=== PATIENT | female | born 1980 | race Two or more races ===

== ENCOUNTER 2020-07-15 08:04 | Outpatient (CLI) | payer OTHER | END 2020-07-15 08:17 | disposition home or self-care (01) | LOC: LAB 08:04 | PROVIDERS: ATTEND Obstetrics & Gynecology | DX: D64.89 Other specified anemias (principal); E78.49 Other hyperlipidemia; E07.89 Other specified disorders of thyroid; N39.0 Urinary tract infection, site not specified; M25.50 Pain in unspecified joint; E55.9 Vitamin D deficiency, unspecified; D51.8 Other vitamin B12 deficiency anemias; D50.8 Other iron deficiency anemias; Z12.11 Encounter for screening for malignant neoplasm of colon ==

== ENCOUNTER 2020-07-20 10:38 | Outpatient (CLI) | payer OTHER | END 2020-07-20 10:44 | disposition home or self-care (01) | LOC: LAB 10:38 | PROVIDERS: ATTEND Obstetrics & Gynecology | DX: D64.89 Other specified anemias (principal); E78.49 Other hyperlipidemia; N39.0 Urinary tract infection, site not specified; M25.50 Pain in unspecified joint; R73.09 Other abnormal glucose; E55.9 Vitamin D deficiency, unspecified; D51.8 Other vitamin B12 deficiency anemias; D50.8 Other iron deficiency anemias; Z12.11 Encounter for screening for malignant neoplasm of colon ==

== ENCOUNTER → 2022-12-03 08:31 | Outpatient (CLI) | payer OTHER | END | disposition home or self-care (01) | LOC: LAB 08:31 | PROVIDERS: ATTEND Obstetrics & Gynecology | DX: N93.8 Other specified abnormal uterine and vaginal bleeding (principal); E03.8 Other specified hypothyroidism; E56.8 Deficiency of other vitamins; E78.2 Mixed hyperlipidemia; N95.1 Menopausal and female climacteric states; N39.8 Other specified disorders of urinary system; D64.89 Other specified anemias; R73.02 Impaired glucose tolerance (oral); E78.5 Hyperlipidemia, unspecified; Z12.11 Encounter for screening for malignant neoplasm of colon; Z00.01 Encounter for general adult medical examination with abnormal findings; D50.9 Iron deficiency anemia, unspecified; D51.9 Vitamin B12 deficiency anemia, unspecified; E55.9 Vitamin D deficiency, unspecified ==

== ENCOUNTER 2022-12-08 10:13 | Outpatient (CLI) | payer OTHER | END 2022-12-08 10:20 | disposition home or self-care (01) | LOC: LAB 10:13 | PROVIDERS: ATTEND Obstetrics & Gynecology | DX: Z12.11 Encounter for screening for malignant neoplasm of colon (principal); R73.02 Impaired glucose tolerance (oral); E78.5 Hyperlipidemia, unspecified; Z02.9 Encounter for administrative examinations, unspecified; D50.9 Iron deficiency anemia, unspecified; E55.9 Vitamin D deficiency, unspecified ==

== ENCOUNTER 2023-11-21 09:43 | Outpatient (CLI) | payer OTHER ==
[2023-11-21 12:01] LABS: VITAMIN D3 25 HYDROXY 36.32 ng/ml (30-120)
== END 2023-11-21 09:53 | disposition home or self-care (01) ==
LOC: LAB 09:43
PROVIDERS: ATTEND Obstetrics & Gynecology
DX: E56.8 Deficiency of other vitamins (principal); E55.9 Vitamin D deficiency, unspecified

== ENCOUNTER → 2024-01-27 08:43 | Outpatient (CLI) | payer OTHER ==
[2024-01-27 09:56] LABS: PH,URINE 6.5 (5.0-8.0); URINE APPEARANCE Clear; URINE BILIRRUBIN Negative (NEGATIVE); URINE BLOOD Trace; URINE COLOR Yellow; URINE GLUCOSE Negative (NEGATIVE); URINE LEUKOCYTE Negative; URINE NITRATE Negative; URINE PROTEIN Negative (NEGATIVE); URINE RBC 3.1 uL (0.0-20.8); URINE UROBILINOGEN 0.2 E.U./dl; URINE WBC 1.8 uL (0.0-23.2)
[2024-01-27 10:35] LABS: HEMATOCRIT 36.6 % (36.0-45.00); HEMOGLOBIN 12.4 g/dL (12.0-15.00); MEAN CELL VOLUME 86.8 fL (80.00-100.00); MEAN CORPUSCULAR HEMOGLOBIN 29.4 pg (27.00-32.0); MEAN CORPUSCULAR HGB CONC 33.9 g/dl (32.0-36.0); PLATELET COUNT 207 K/uL (150-450); RED BLOOD COUNT 4.22 M/uL (4.00-6.00); RED CELL DISTRIBUTION WIDTH 13.5 % (11.5-14.5)
[2024-01-27 11:08] LABS: ALBUMIN 4.2 gm/dL (3.4-5.0); BILIRUBIN TOTAL 0.36 mg/dL (0.3-1.2); CALCIUM 9.6 mg/dL (8.5-10.1); CHOL HDL RATIO 2.2 (0-5.0); CREATININE SERUM 0.65 mg/dL (0.55-1.02); FERRITIN 11.3 NG/ML (8-252); GFR 99.02; GLOBULINA 3.9 G/DL (2.4-3.5); POTASSIUM 3.75 mEq/L (3.5-5.1); TOTAL PROTEIN 8.1 gm/dL (6.4-8.2); TSH 2.07 uIU/mL (0.358-3.74)
== END | disposition home or self-care (01) ==
LOC: LAB 08:43
DX: D50.9 Iron deficiency anemia, unspecified (principal); R73.09 Other abnormal glucose; E78.2 Mixed hyperlipidemia; Z13.29 Encounter for screening for other suspected endocrine disorder

== ENCOUNTER 2024-06-10 06:52 | Outpatient (CLI) | payer OTHER ==
[2024-06-10 07:59] LABS: HEMATOCRIT 33.9 % (36.0-45.00); HEMOGLOBIN 11.5 g/dL (12.0-15.00); MEAN CELL VOLUME 85.2 fL (80.00-100.00); MEAN CORPUSCULAR HGB CONC 34.1 g/dl (32.0-36.0); PLATELET COUNT 185 K/uL (150-450); RED BLOOD COUNT 3.98 M/uL (4.00-6.00)
[2024-06-10 08:55] LABS: ALBUMIN 3.6 gm/dL (3.4-5.0); GLOBULINA 3.4 G/DL (2.4-3.5)
== END 2024-06-10 07:02 | disposition home or self-care (01) ==
LOC: LAB 06:52
DX: D50.9 Iron deficiency anemia, unspecified (principal); R77.1 Abnormality of globulin